=== PATIENT | female | born 1935 | race Caucasian/White ===

== ENCOUNTER → 2017-03-30 | Outpatient (CLI) | payer MEDICARE ==
[~2017-03-30] MED LIST: ALDACTONE PO; ALDACTONE25 MG PO; ALPRAZOLAM PO; AMLODIPINE BESYL5 MG PO; ATENOLOL PO; CYANOCOBALAM1000 MCG PO; FISH OIL300 MG; FLEXERIL PO; HYDROCODON-ACE1 EAC1 PO; HYDROCODONE-APA1 T30 PO; LEVAQUIN250 MG PO; LEVOTHYROXINE112 MCG PO; LIPITOR PO; LISINOPRIL PO; LISINOPRIL20 MG PO; LOPRESSOR PO; MIRALAX17 GM DOB; NEXIUM PO; NORVASC PO; PAXIL PO; SYNTHROID PO; TENORETIC 50 TA1 TAB PO; TRICOR PO; TYLENOL325 M1 PO; VICODIN 5/500 T1 TAB PO; VYTORIN 10/40 T1 TAB PO; ZOLOFT PO
--- NOTE | ~2017-03-30 | CR150 ---
[facility] A Service of [facility] & [facility] RADIOLOGY TEXT RESULTS PATIENT: DENY KUHN LOCATION: [facility] : 37 UNIT #: [id number] AGE: [address]: Marilu Stark MD SEX: F ORDER DR: [id number] [address] [address] [id number] O MR#: [id number] Acc #: [id number] NAME: DENY KUHN : 1935 SEX: F STUDY DATE/TIME: 03/30/2017 14:43 UNIT: [facility] ROOM: STUDY DESCRIPTION: CR Hip Min 2 Views Lt Attending Physician: Marilu Stark M.D. Referring Physician: Marilu Stark M.D. Ordering Physician: Marilu Stark M.D. Primary Care Physician: Dominique Rdz M.D. MEDICAL IMAGING REPORT This report is preliminary unless electronic signature is present. EXAM Left hip 2 views 03/30/2017 HISTORY Left hip pain for over 10 years; osteoarthritis left hip. Pain has worsened in the last 5 months with numbness and tingling extending into the left knee. FINDINGS 2 views of the pelvis and left hip demonstrate no fracture. The bones are osteopenic. The hip joints are normally maintained. Surgical clips are seen within the pelvic midline. IMPRESSION Osteopenia. No acute abnormality involving the left hip. Dictated by... Brandon Putnam M.D. THIS IS AN ELECTRONICALLY VERIFIED REPORT Brandon Putnam M.D. at 03/31/2017 2:25 PM Rosalio TD: 03/30/2017 18:55 JOB #: [id number] MEDICAL IMAGING REPORT Page 1 of 1
== END | disposition home or self-care (01) ==
LOC: SRAD 14:35
DX: M16.12 Unilateral primary osteoarthritis, left hip (principal); M85.852 Other specified disorders of bone density and structure, left thigh
CPT/HCPCS: 73502